=== PATIENT | male | born 1965 | race Caucasian/White ===

== ENCOUNTER 2021-01-04 05:37 | Observation (INO) | payer OTHER, SELFPAY ==
--- NOTE | ~2021-01-04 | XR_ITS ---
EXAMINATION: XR abdomen/kub 1V EXAM DATE: 01/05/2021 05:20 INDICATION: Small bowel obstruction. TECHNIQUE: Frontal projection(s) of the abdomen for interpretation. Comparison is made to prior exami nation from 01/04/2021. FINDINGS: Nasogastric tube present, tip is in stomach, but side port just above the gastroesophageal junction, could be safely advanced 5-10 cm. Several loops of severely dilated small bowel loops proje cting over lower pelvis, several loops of moderately dilated small bowel projecting over upper abdome n, small bowel obstruction. There is no organomegaly. IMPRESSION: 1. Feeding tube tip in stomach, side-port above the gastroesophageal junction. Could be safely advan damian 5-10 cm. 2. Small bowel obstruction. Reviewed, dictated and finalized at location A. IMPRESSION: 1. Feeding tube tip in stomach, side-port above the gastroesophageal junction. Could be safely advanced 5-10 cm. 2. Small bowel obstruction.
--- NOTE | ~2021-01-04 | XR_ITS ---
EXAMINATION: XR abdomen NG/feed tube insert DATE: 01/04/2021 11:28 INDICATION: Nasogastric tube placement. TECHNIQUE: An upright view of the abdomen was obtained. COMPARISON: CT abdomen and pelvis 01/04/2021 FINDINGS: The lower abdomen is excluded. There are multiple dilated loops of small bowel. The nasogas tric tube tip is in the stomach with proximal side port at the gastroesophageal junction. IMPRESSION: 1. Nasogastric tube tip in the stomach with proximal side port at the gastroesophageal junction. Adva ncement 5 cm is recommended. 2. Small bowel obstruction. Reviewed, dictated and finalized at location A. IMPRESSION: 1. Nasogastric tube tip in the stomach with proximal side port at the gastroeso phageal junction. Advancement 5 cm is recommended. 2. Small bowel obstruction.
--- NOTE | ~2021-01-04 | CT_ITS ---
EXAMINATION: CT abdomen pelvis w con EXAM DATE: 01/04/2021 06:58 INDICATION: Lower abdominal pain . TECHNIQUE: Spiral CT of the abdomen and pelvis was performed following intravenous injection of 100 m L Omnipaque 350. Axial, coronal and sagittal images of the abdomen and pelvis were reviewed. The do se-length product (DLP) for this examination was 1246.65 mGy-cm. The exposure was tailored according to patient size (auto mA exposure control), and iterative reconstruction (ASIR) was used as addition al dose reduction technique. Comparison is made to prior examination from 09/26/2018. FINDINGS: Small amount of perihepatic ascites. The liver, spleen, adrenal glands and pancreas are un remarkable. Gallbladder is unremarkable. No biliary obstruction. Portal and splenic veins are rodriguez nt. Kidneys enhance symmetrically. There is no hydronephrosis. The prostate is unremarkable. The bladder is unremarkable. There is no retroperitoneal or pelvic lymphadenopathy. There is mild sca ttered arteriosclerotic disease. Patient has subtotal colectomy. Again there is region of tenting of small bowel in the pelvis, with a transition point indicated on axial image 156. Most likely adhesion related small bowel obstruction. There is only small amount of sigmoid colonic stool. Similar appearance on prior study. No free in traperitoneal gas. The heart is normal in size. There are no pericardial or pleural effusions. Th e lung bases are unremarkable. There are no osteoblastic or osteolytic lesions identified. Patient cheryl de los santos has ankylosing spondylitis. IMPRESSION: 1. Recurrent small bowel obstruction, probably adhesion related. 2. Subtotal colectomy. 3. Small perihepatic ascites. 4. Probable ankylosing spondylitis Reviewed, dictated and finalized at location A.
[2021-01-04 05:42] VITALS: BP 147/93; PULSE 75; RESP 20; TEMP 36.9; O2SAT 94
[2021-01-04] MEDS: SODIUM CHLORIDE 0.9% IV 1,000 ML 999 ML IV CONT (06:13)
[2021-01-04] MEDS: ONDANSETRON INJ 4 MG/2 ML VIAL IV PUSH ×2 (06:13→11:03)
[2021-01-04] MEDS: HYDROmorphone HCL INJ (*CRX) 1 MG/ML SYR IV PUSH (06:13)
[2021-01-04 06:25] LABS: Basophils Absolute Auto 0.1 K/mm3 (0.0-0.1); Basophils Percent Auto 0.4 % (0.2-1.2); Eosinophils Percent Auto 0.3 % (0-4.4); Hematocrit 45.2 % (42.0-52.0); Hemoglobin 15.8 g/dL (14.0-18.0); Immature Granulocyte Absolute 0.09 K/mm3 (0.00-0.031); Immature Granulocyte Percent A 0.7 % (0-0.5); Lymphocytes Absolute Auto 1.23 K/mm3 (0.9-3.2); Lymphocytes Percent Auto 9.7 % (18.3-44.2); Mean Corpuscular Hemoglobin 30.2 pg (26-34); Mean Corpuscular Volume 86.3 fl (80-100); Monocytes Absolute Auto 0.8 K/mm3 (0.1-0.6); Monocytes Percent Auto 6.2 % (2.6-8.5); Neutrophils Absolute Auto 10.5 K/mm3 (1.3-6.7); Neutrophils Percent Auto 82.7 % (45.5-73.1); Platelet Count Result 232 k/mm3 (150-375); Red Blood Count 5.24 M/mm3 (4.6-6.20); Red Cell Distribution Width 12.7 % (11.5-14.5); White Blood Count 12.7 K/mm3 (4.5-10.0)
[2021-01-04 06:34] LABS: Lactic Acid Reflex 1.5 mmol/L (0.7-2.1)
[2021-01-04 06:36] LABS: Alanine Aminotransferase 23 U/L (4-50); Albumin Level 4.4 g/dL (3.5-5.1); Alkaline Phosphatase 79 U/L (38-126); Anion Gap 12 mmol/L (8-16); Aspartate Amino Transferase 35 U/L (17-59); Bilirubin,Total 0.7 mg/dL (0.2-1.3); Blood Urea Nitrogen 21 mg/dL (9-20); Calcium 9.3 mg/dL (8.4-10.2); Carbon Dioxide 23 mmol/L (22-30); Chloride 107 mmol/L (98-107); Estimated CRCL calculation 71 ml/min; Estimated Glomerular Filt Rate > 60; Glucose 119 mg/dL (75-110); Lipase 72 U/L (23-300); Potassium 4.2 mmol/L (3.4-5.0); Sodium 142 mmol/L (137-145)
--- NOTE | 2021-01-04 06:39 | ED.ABDPAIN ---
HPI - Abdominal Pain General Chief Complaint: Abdominal Pain <Inez Underwood MD - Last Filed: 01/04/21 07:10> Stated Complaint: sbo <Inez Underwood MD - Last Filed: 01/04/21 07:10> Time Seen by Provider: 01/04/21 05:53 <Inez Underwood MD - Last Filed: 01/04/21 07:10> Source: patient, RN notes reviewed and old records reviewed <Inez Underwood MD - Last Filed: 01/04/21 07:10> Mode of arrival: ambulatory <Inez Underwood MD - Last Filed: 01/04/21 07:10> Limitations: no limitations <Inez Underwood MD - Last Filed: 01/04/21 07:10> History of Present Illness HPI narrative: This is a 55 year old male with history of chrohn's disease, s/p total proctocolectomy with a J pouch who presents for evaluation of lower abdominal pain. He states he developed pain around 11 pm last night, and his pain has gradually worsened. He states he had a bowel movement at 10pm . He also reports he passed a small one just prior to arrival . He feels like he has an obstruction around his Jpouch. HE has nausea but no vomiting. He denies fever or chills. He states his surgery was in . He follows with [facility], Dr. Elsa Rodriguez <Inez Underwood MD - Last Filed: 01/04/21 07:10> Related Data Allergies/Adverse Reactions: Allergies Allergy/AdvReac Type Severity Reaction Status Date / Time No Known Allergies Allergy Unverified 02/05/16 07:07 <Inez Underwood MD - Last Filed: 01/04/21 07:10> Review of Systems Review of Systems: All systems reviewed & are unremarkable except as noted in HPI and below <Inez Underwood MD - Last Filed: 01/04/21 07:10> [facility] Past Medical History Medical History: Medical History (Updated 01/04/21 @ 10:58 by Sebastien Campo MD) Ankylosing spondylitis Crohn's disease of colon Psoriatic arthritis <Inez Underwood MD - Last Filed: 01/04/21 07:10> Surgical History Surgical History: Surgical History (Updated 01/04/21 @ 06:46 by Inez Underwood MD) S/P proctocolectomy <Inez Underwood MD - Last Filed: 01/04/21 07:10> Social History Social History: Social History Smoking status: Never smoker Alcohol intake: current <Inez Underwood MD - Last Filed: 01/04/21 07:10> Exam Const: General: alert <Inez Underwood MD - Last Filed: 01/04/21 07:10> Orientation/consciousness: patient oriented x3 <Inez Underwood MD - Last Filed: 01/04/21 07:10> HENMT: Head: normocephalic and atraumatic <Inez Underwood MD - Last Filed: 01/04/21 07:10> Face and sinus: face symmetric <Inez Underwood MD - Last Filed: 01/04/21 07:10> GI: Inspection: distended <Inez Underwood MD - Last Filed: 01/04/21 07:10> GI Palp: Yes Tenderness to palpation present (GI) and No Guarding due to palpation present (GI) <Inez Underwood MD - Last Filed: 01/04/21 07:10> Auscultation: Hypoactive bowel sounds present <Inez Underwood MD - Last Filed: 01/04/21 07:10> Other: declined rectal exam <Inez Underwood MD - Last Filed: 01/04/21 07:10> Skin: Other: forehead is diaphoretic <Inez Underwood MD - Last Filed: 01/04/21 07:10> Neuro: General: patient oriented x3 and moves all extremities <Inez Underwood MD - Last Filed: 01/04/21 07:10> Psych: Affect: normal affect <Inez Underwood MD - Last Filed: 01/04/21 07:10> Course Reevaluation(s) Reevaluation #1: PAtient is awaiting CT scan results. Care turned over to DR. Campo who will follow scans and determine disposition. <Inez Underwood MD - Last Filed: 01/04/21 07:10> Date: 01/04/21 <Inez Underwood MD - Last Filed: 01/04/21 07:10> Time: 07:09 <Inez Underwood MD - Last Filed: 01/04/21 07:10> Reevaluation #2: After CT scan admission or transfer was offered to the patient. He declined both and he also declined an NG tube because he felt his obstruction was soon going to pass and just wanted
[2021-01-04] MEDS: MORPHINE SULFATE (*CRX) 4 MG/ML INJ IV PUSH ×3 (08:03→14:57)
[2021-01-04 08:07] VITALS: BP 119/73; PULSE 78; RESP 19; O2SAT 98
[2021-01-04 08:51] LABS: Add Urine Microscopic? NO; Appearance Urine Clear (Clear); Bilirubin Urine Negative (Negative); Blood Urine Negative (Negative); Color Urine Yellow (Yellow); Glucose Urine UA Negative (Negative); Ketones Urine Negative (Negative); Leukocyte Esterase Ur Negative LEU/UL (Negative); Mucus Urine Rare /lpf; Nitrate Urine Negative (Negative); Protein Urine Negative (Negative); Urobilinogen Urine Negative mg/dL (<2.0); WBC Urine 0-3 /hpf
[2021-01-04 12:25] VITALS: BP 111/65; PULSE 88; RESP 15; O2SAT 95
--- NOTE | 2021-01-04 12:32 | PC.NURSE ---
gave pt 2mg of IV Morphine per Dr. Prakash.
--- NOTE | 2021-01-04 13:02 | PM.IMHP ---
H&P: HPI History of Present Illness Date/Time: 01/04/21 13:02 Chief Complaint: bowel obstruction Narrative: patient is a 55-year-old man who has a history of ulcerative colitis. In 1992 he underwent total abdominal proctocolectomy with J pouch in [facility]. Since that time, he has had issues with recurrent small-bowel obstructions as well as pouchitis. He also has a history of psoriatic arthritis. He has been on azathioprine and Stelara although I am not sure he is continuing to take these medications. He came to the emergency room early this morning with complaints of abdominal pain and lack of bowel movement. He normally has anywhere from 4-7 bowel movements per day. He is able to sense when he is having a bowel obstruction. He had some vomiting in the emergency room but none when he was at home. He had pouchoscopy at [facility] on December 12, [address] Elsa Rodriguez. The operative report from this endoscopy suggested he was on Otezla although he is apparently not taking that at present. The pouch os copies suggested that he has swelling and stenosis of the Afrin limb to the pouch. This was dilated at the procedure with 8 2 cm colonic balloon. Patient had a CT scan in the emergency department. This suggested a high-grade obstruction very similar to the location of his obstruction when he was here and admitted in 2019. The site of obstruction did not appear to be near the inlet to the pouch but rather more associated with adhesions. Tenting of the bowel was noted on the CT scan suggesting of this as well as a transition point. Patient is currently having abdominal pain requesting narcotic analgesics. A nasogastric tube has been placed. Review of his admission in September of 2018 showed that the obstruction resolved overnight. He is admitted now for continued care of small bowel obstruction. He does not take narcotics on a chronic basis. His reports he is off nearly all his medications except Protonix. Review of Systems Review of Systems: All systems reviewed & are unremarkable except as noted in HPI and below Constitutional: Constitutional: Reports as per HPI, Denies body ache(s), Denies chills, Denies fever(s), Denies headache(s), Denies night sweats and Reports poor appetite ENT: Denies headache(s) Cardiovascular: Cardiovascular: Denies chest pain and Denies dyspnea Respiratory: Respiratory: Denies cough and Denies dyspnea Gastrointestinal: Gastrointestinal: Reports as per HPI, Reports abdominal pain, Reports change in bowel habits, Reports constipation, Reports nausea and Reports vomiting Neurologic: Denies confusion and Denies headache(s) Psychiatric: Psychiatric: Denies confusion PMFSH Past Medical History Medical History (Updated 01/04/21 @ 13:26 by Julio Prakash MD) Ankylosing spondylitis Ileal pouchitis Psoriatic arthritis Surgical History Surgical History (Updated 01/04/21 @ 13:25 by Julio Prakash MD) S/P proctocolectomy with J pouch 1992 Social History Social History Smoking status: Never smoker Alcohol intake: current Meds Home Medications and Allergies Home Medications Medication Instructions Recorded Confirmed Type allopurinol 01/04/21 History azathioprine 01/04/21 History cefdinir mg 01/04/21 History pantoprazole PO 01/04/21 History ustekinumab [Stelara] SUBCUT 01/04/21 History Allergies Allergy/AdvReac Type Severity Reaction Status Date / Time No Known Allergies Allergy Unverified 02/05/16 07:07 Vital Signs Vital Signs - 24 hr 01/04/21 05:42 01/04/21 08:07 01/04/21 12:25 Temperature 36.9 C Pulse Rate 75 78 88 Respiratory Rate 20 19 15 Blood Pressure 147/93 H 119/73 111/65 Pulse Oximetry 94 98 95 Exam Const: General: healthy appearing, no acute distress, well developed, alert, awake and uncomfortable Nutritional Appearance: well nourished
--- NOTE | 2021-01-04 13:13 | PC.NURSE ---
This patient, Kevin Cervantes, was admitted to [facility] Surg Room 310-01. Report received from BHUMI Damon. Patient/family oriented to hospital policies and general routines including ID bracelet, bed and alarms, visiting hours, pain management, procedures, bathroom and other care routines, personal items, smoking policy, room service/diet, and visiting hours. Information on how to activate the Rapid Response Team has been discussed. Patient/Family are encouraged to report perceived risks to care and to ask questions if they do not understand what they are told or what they should do.
[2021-01-04] MEDS: KCL 40 MEQ/D5/0.9% SOD CHL 1,000 ML 125 ML IV CONT ×2 (13:58→23:27)
[2021-01-04 14:00] VITALS: BP 115/75; PULSE 77; RESP 18; TEMP 36; O2SAT 97
[2021-01-04] MEDS: IBUPROFEN IV 800 MG/200 ML 800 MG/200 ML BAG 400 MG IVPB (14:06)
[2021-01-04] MEDS: ENOXAPARIN 40 MG/0.4 ML SYRINGE SUB-Q (17:27)
[2021-01-04 21:33] VITALS: BP 124/64; PULSE 75; RESP 18; TEMP 37.1; O2SAT 97
[2021-01-04] MEDS: FAMOTIDINE 20 MG/2 ML VIAL IV PUSH (22:03)
[2021-01-05 06:00] VITALS: BP 125/71; PULSE 80; RESP 18; TEMP 36.3; O2SAT 97
[2021-01-05 06:05] LABS: Hematocrit 43.7 % (42.0-52.0); Hemoglobin 14.4 g/dL (14.0-18.0); Mean Corpuscular Hemoglobin 30.1 pg (26-34); Mean Corpuscular Volume 91.4 fl (80-100); Mean Platelet Volume 9.5 fl (7.4-10.4); Platelet Count Result 202 k/mm3 (150-375); Red Blood Count 4.78 M/mm3 (4.6-6.20); Red Cell Distribution Width 13.5 % (11.5-14.5); White Blood Count 6.8 K/mm3 (4.5-10.0)
[2021-01-05 06:12] LABS: Anion Gap 7 mmol/L (8-16); Blood Urea Nitrogen 23 mg/dL (9-20); Calcium 8.2 mg/dL (8.4-10.2); Carbon Dioxide 29 mmol/L (22-30); Chloride 105 mmol/L (98-107); Estimated CRCL calculation 66 ml/min; Estimated Glomerular Filt Rate 57; Glucose 109 mg/dL (75-110); Potassium 3.9 mmol/L (3.4-5.0); Sodium 141 mmol/L (137-145)
--- NOTE | 2021-01-05 09:24 | PM.IMCN ---
Assessment and Plan Assessment and plan (1) Small bowel obstruction: Onset Date: ~12/2020 Code(s): K56.609 - Unspecified intestinal obstruction, unspecified as to partial versus complete obstruction Status: Acute (2) Ileal pouchitis: Onset Date: ~11/2020 Code(s): K91.850 - Pouchitis Status: Chronic (3) Psoriatic arthritis: Onset Date: Unknown Code(s): L40.50 - Arthropathic psoriasis, unspecified Status: Chronic Additional Plan Patient appears to be doing well with his UC treatment. Still evidence of ongoing inflammation with pouchitis but mild improvement from prior. Continue Stelara which will also cover for the psoriasis and psoriatic arthritis. Skin is clear now. Patient tolerating current diet. Advance as tolerated. Instructed patient that in the future if these symptoms recur, he should remain NPO until stool and flatus pass then proceed with clear liquid diet. Lovenox for DVT prophylaxis Thank you for allowing me to see your patient. HPI Data of Consult Consult date: 01/05/21 Requesting Physician: Julio Prakash MD Primary Care Provider: Ba Hendrix MD Consult Narrative Reason for consult: Medical management Narrative: Kevin Cervantes is a 55 year old male with ulcerative colitis here for abdominal pain and found to have small bowel obstruction. Patient developed abdominal pain the evening prior to admission. He had distention without flatus or BMs. He has had SBO in the past treated conservatively. He walked excessively and had improvement with +BMs. He then had a Diet Coke and tortilla chips. 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 No n/v. No fever or chills. No further hx of stool incontinence. Estee was found to have SBO on admisison and NGT placed. Patient has had improvement with multiple stools today. NG tube is out. No melena or hematochezia. 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 Weight has been stable recently. Currently on Stelara monotherapy. He stopped Imuran 8 months ago with plans to change to another oral agent but there was an insurance issue. While awaiting for authorization, he seemed to do quite well with the Stelara so patient wished to remain on single agent. He had his last endoscopy on 12/12/20 at [facility] that showed friable rectal cuff, aphtha in the ileoanal pouch and stricture in the afferent limb that was dilated. Review of Systems Review of Systems: All systems reviewed & are unremarkable except as noted in HPI and below PMFSH Past Medical History Medical History Ankylosing spondylitis Erosive gastroesophageal reflux disease HLA-B27 positive arthropathy Ileal pouchitis (~11/2020) Psoriasis Psoriatic arthritis (Unknown) Ulcerative colitis diagnosed in 1982 Surgical History Surgical History H/O peritonsillar abscess drainage H/O total colectomy Total in 1992 for UC with reversal ileostomy with ileoanal anastamosis S/P left knee arthroscopy meniscus surgery in 1997 S/P proctocolectomy with J pouch 1992 Family History Family History (Updated 01/05/21 @ 14:20 by Dedrick Uribe MD) Mother Dementia Father Alcoholism Cancer Social History Social History (Updated 01/05/21 @ 14:22 by Dedrick Uribe MD) Social History: Smoked 1/2ppd x 3-4 years and quit at age 17yo. Drinks 6 alcoholic drinks per year. No drug use. Lives at home with his and 3 children. Full code. Nominates his to be the individual who would make medical decision for him if he is unable Smoking status: Never smoker Alcohol intake: current Spiritual care concerns: No Meds Home Medications and Allergies Home Medications Medication Instructions Recorded Confirmed Type pantoprazole 40 mg PO DAILY 01/04/21 01/04/21 History ustekinumab [St
--- NOTE | 2021-01-05 09:28 | PM.PNGS ---
Progress Note: A&P Assessment and Plan (1) Small bowel obstruction: Onset Date: ~12/2020 Code(s): K56.609 - Unspecified intestinal obstruction, unspecified as to partial versus complete obstruction Status: Acute Assessment and Plan: Clinically the patient is improving. Abdominal x-ray today still shows a few dilated loops of small bowel however patient is having bowel movements Will plan to check with his nurse at around lunch and if he is improving consider discharge that time period (2) Ileal pouchitis: Onset Date: ~11/2020 Code(s): K91.850 - Pouchitis Status: Chronic Assessment and Plan: Patient has had on and off pouch itis. He is working with a GI physician at [facility] to control this and will contact them if he has further problems once discharged. (3) Psoriatic arthritis: Onset Date: Unknown Code(s): L40.50 - Arthropathic psoriasis, unspecified Status: Chronic Assessment and Plan: This is the main reason for the consultation to the hospitalist. Dr. Prakash put this consult in before he left [facility]. Patient does not apparently take any routine p.o. medicines for this but takes the Stelara once every 6 weeks as an injection and this helps keep this under control. 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 Additional Plan Increase diet to full liquids Check at noon and see if patient can be discharged. Encourage patient to work with his GI physician and possibly get admitted to [place] the next time he has a bowel obstruction so that they can further check his pouch and the afferent loop. Subjective Subjective Date/Time Seen: 01/05/21 08:28 Patient is feeling much better. He began having loose stools through the night. Therefore, Dr. Manriquez checked on him early this morning and had his NG tube removed. Plain films of the abdomen were repeated this morning still showing some dilated loops of small bowel but the patient is continuing to have loose stools and states that he is having no pain adjust the occasional cramping. He still feels like he slightly bloated in the abdomen. He is however tolerating clear liquids. Review of Systems Constitutional: Constitutional: Reports no additional constitutional complaints ENT: Reports other (Mucous Membranes moist.) Cardiovascular: Cardiovascular: Denies dyspnea Respiratory: Respiratory: Denies pain on inspiration and Denies dyspnea Musculoskeletal: Musculoskeletal: Reports other (No calf swelling or edema) Integumentary/Breasts: Skin/Breast: Reports system reviewed and no additional complaints, except as docu Exam Const: General: cooperative, no acute distress, alert and awake Orientation/consciousness: patient oriented x3 HENMT: Mouth: Yes moist mucous membranes Neck: Neck: normal visual inspection Chest: Chest palpation & inspection: normal inspection of the chest Resp: Effort & Inspection: normal respiratory effort Auscultation: clear to auscultation bilaterally Cardio: Jugular venous distension: no JVD Rate: regular rate Rhythm: regular rhythm GI: Inspection: scar (Well-healed midline from previous surgery) GI Palp: No Hernia present and No Rebound tenderness present Percussion: Yes other (Mild abdominal distention to palpation with no masses) Auscultation: normoactive bowel sounds Rectal Exam: deferred Neuro: General: patient oriented x3 and moves all extremities Speech: normal speech Extrem: General: normal exam except as noted Psych: Mental Status: mental status grossly normal Speech and movement: Normal speech and movement present Affect: normal affect Thought content: Yes Normal thought content present Objective Data Vital Signs Vital Signs: Vital Signs - 24 hr 01/04/21 12:25 01/04/21 14:00 01/04/21 21:33 Temperature 36.0 C L 37.1 C Pulse Rate 88 77 75 Respiratory Rate 15 18 18 Blood Pressure 111/65 115/75 124/64 Pulse Oxim
[2021-01-05] MEDS: PANTOPRAZOLE 40 MG TABLET PO (10:37)
== END 2021-01-05 14:38 | disposition home or self-care (01) ==
LOC: ANHED 10:58 → ANH3MEDSUR 15:18
PROVIDERS: General Practice; Admitting Provider Surgery; Emergency Provider Emergency Medicine; PCP Family Medicine; Visit Provider Surgery
DX: K56.609 Unspecified intestinal obstruction, unspecified as to partial versus complete obstruction (principal); K51.90 Ulcerative colitis, unspecified, without complications; K91.850 Pouchitis; M45.9 Ankylosing spondylitis of unspecified sites in spine; L40.50 Arthropathic psoriasis, unspecified; K21.9 Gastro-esophageal reflux disease without esophagitis; R76.8 Other specified abnormal immunological findings in serum; Z15.89 Genetic susceptibility to other disease; Z90.49 Acquired absence of other specified parts of digestive tract
CPT/HCPCS: 36415; 74018; 74177; 80048; 80053; 81003; 83605; 83690; 85025; 85027; 96361; 96365; 96366; 96367; 96372; 96375; 96376; 99285; A9270; G0378; J1170; J1650; J1741; J2270; J2405; J3480; J7030; Q9967

== ENCOUNTER → 2021-10-13 14:37 | Outpatient (CLI) | payer OTHER, SELFPAY ==
--- NOTE | ~2021-10-13 | XR_ITS ---
XR lumbar spine 2-3V DATE: 10/13/2021 15:45 INDICATION: Low back pain TECHNIQUE: AP, lateral, coned lateral lumbosacral views COMPARISON: 04/17/2016 CT abdomen pelvis September 14, 2016 lumbar spine FINDINGS: Very prominent bridging osteophyte at L3-4 and and to a lesser extent L4-5. No fracture or bone destruction or spondylolisthesis. The lumbar pedicles are intact. There is degenerative change at the apophyseal joints. No spondylolisthesis. There is ankylosis at the sacroiliac joints as well as syndesmophytes of lower thoracic and lumbar sp ine, suggesting ankylosing spondylitis or other spondyloarthropathy. IMPRESSION: Bilateral sacroiliac ankylosis and lower thoracic and lumbar syndesmophytes, suggesting a nkylosing spondylitis or other spondyloarthropathy Huge bridging osteophyte at L3-4, anterior spurring at L4-5 Reviewed, dictated and finalized at location A. IMPRESSION: Bilateral sacroiliac ankylosis and lower thoracic and lumbar syndes mophytes, suggesting ankylosing spondylitis or other spondyloarthropathy Huge bridging osteophyte at L3-4, anterior spurring at L4-5
== END ==
DX: M54.50 Low back pain, unspecified (principal)
CPT/HCPCS: 72100

== ENCOUNTER → 2022-01-16 13:01 | Outpatient (CLI) | payer OTHER, SELFPAY ==
--- NOTE | ~2022-01-16 | CT_ITS ---
EXAMINATION: CT abdomen pelvis w con INDICATION: Abdominal pain, history of Crohn's disease and total colectomy TECHNIQUE: Computed tomographic images of the abdomen and pelvis were obtained after the administrati on of 100 cc of Omnipaque 300 intravenous contrast. The dose-length product (DLP) was 1075.45 mGy-cm. Automated exposure control and iterative reconstruction technique were employed. COMPARISON: 01/04/2021 FINDINGS: Minimal dependent atelectasis is present in the lung bases. The heart size is normal. There is chronic mild distention of the gallbladder. The liver, spleen, pancreas, and adrenal glands are n ormal. The kidneys are unremarkable. No pathologically enlarged abdominal or pelvic lymph nodes are i dentified. There are changes of total colectomy. There are a few chronically dilated loops of small b owel without fixed obstruction seen. There is no free intraperitoneal gas. IMPRESSION: 1. Changes of total colectomy and some areas of chronically dilated small bowel without acute finding s identified. Reviewed, dictated and finalized at location A. IMPRESSION: 1. Changes of total colectomy and some areas of chronically dilated small bowel without acute findings identified.
== END ==
PROVIDERS: PCP Family Medicine
DX: R10.9 Unspecified abdominal pain (principal); M54.9 Dorsalgia, unspecified; Z90.49 Acquired absence of other specified parts of digestive tract
CPT/HCPCS: 74177; Q9967

== ENCOUNTER 2022-04-17 05:22 | Emergency (ER) | payer OTHER, SELFPAY ==
[2022-04-17] VITALS (13 sets, daily range): BP systolic 102–134; BP diastolic 58–87; PULSE 51–68; RESP 11–19; TEMP 36.4; O2SAT 97–99
--- NOTE | 2022-04-17 05:32 | ECG_ITS ---
Measurements Intervals [place] Rate: 59 P: 28 [place]: 168 QRS: 56 QRSD: 93 T: 50 QT: 426 QTc: 425 Interpretive Statements SINUS BRADYCARDIA BORDERLINE ECG NO PREVIOUS ECG AVAILABLE FOR COMPARISON Electronically Signed On 04-17-2022 16:46:14 CDT by Abiel Nguyễn D.O.
--- NOTE | 2022-04-17 05:40 | ED.GENADULT ---
HPI - General Adult General Chief complaint: Dizziness Stated complaint: VERTIGO Time Seen by Provider: 04/17/22 05:38 History of Present Illness HPI narrative: This is a 56-year-old male history of vertigo presenting to ED chief complaint of vertigo. Patient says it started approximately quarter 5 this morning. He woke up feeling well. When he got out of bed and moved his head he started to have a intense sensation of vertigo. The vertigo completely resolves in between head motions. He then called EMS to bring him to the hospital. Patient has had a recent URI. He denies double vision, dysarthria, dysphagia, diplopia, dystaxia He has no numbness tingling weakness to any extremity. Related Data Home Medications Medication Instructions Recorded Confirmed pantoprazole 40 mg tablet,delayed 40 mg PO DAILY 01/04/21 01/04/21 release ustekinumab 90 mg/mL subcutaneous 90 mg subcut [id number] 01/04/21 01/04/21 syringe (Stelara) Allergies Allergy/AdvReac Type Severity Reaction Status Date / Time No Known Allergies Allergy Verified 04/17/22 05:53 Review of Systems Review of Systems: CONSTITUTIONAL: Denies night sweats. EYES: No eye pain ENT: Denies rhinorrhea CARDIOVASCULAR: Denies palpitations RESPIRATORY: Denies hemoptysis GASTROINTESTINAL: Denies hematemesis GENITOURINARY: Denies hematuria. SKIN: Denies rash MUSCULOSKELETAL: Denies myalgia. NEUROLOGIC: Denies weakness. PSYCHIATRIC: Denies delusions PMFSH Past Medical History Medical History Ankylosing spondylitis Erosive gastroesophageal reflux disease HLA-B27 positive arthropathy Ileal pouchitis (~11/2020) Psoriasis Psoriatic arthritis (Unknown) Ulcerative colitis diagnosed in 1982 Surgical History Surgical History H/O peritonsillar abscess drainage H/O total colectomy Total in 1992 for UC with reversal ileostomy with ileoanal anastamosis S/P left knee arthroscopy meniscus surgery in 1997 S/P proctocolectomy with J pouch 1992 Family History Family History Mother Dementia Father Alcoholism Cancer Social History Social History Social History: Smoked 1/2ppd x 3-4 years and quit at age 17yo. Drinks 6 alcoholic drinks per year. No drug use. Lives at home with his and 3 children. Full code. Nominates his to be the individual who would make medical decision for him if he is unable Smoking status: Never smoker Alcohol intake: current Spiritual care concerns: No Exam Narrative: APPEARANCE: No apparent distress. Head atraumatic. tympanic membranes are normal EYES: PERRLA/EOMI, No nystagmus at rest. NOSE: Normal no drainage NECK: Supple, Trachea midline RESPIRATORY: CTAB, No increased work of breathing. CARDIOVASCULAR: S1S2 appreciated ABDOMINAL: Soft, nontender, nondistended, MUSCULOSKELETAl: No obvious deformities NEURO: Alert. Cranial nerves 2-12 grossly intact. Sensation light touch, motor function cerebellar function intact for 4/4extremities. Gait exam was normal. SKIN:: Warm, dry. Normal color PSYCHIATRIC: Normal affect Course Vital Signs Vital signs: Vital Signs Temperature 36.4 C 04/17/22 05:25 Pulse Rate 57 L 04/17/22 05:25 Respiratory Rate 17 04/17/22 05:25 Blood Pressure 130/77 04/17/22 05:25 Pulse Oximetry 97 04/17/22 05:25 Temperature 36.4 C 04/17/22 05:25 Pulse Rate 57 L 04/17/22 08:01 Respiratory Rate 15 04/17/22 08:01 Blood Pressure 126/87 04/17/22 08:01 Pulse Oximetry 97 04/17/22 08:01 Oxygen Delivery Room Air 04/17/22 05:30 Medical Decision Making [facility] Narrative Medical decision making narrative: this is a 56-year-old male presenting to ED with vertigo. His constellation of symptoms are not consistent with a central
[2022-04-17] MEDS: SODIUM CHLORIDE 0.9% IV 2,000 ML 999 ML IV CONT (05:48)
[2022-04-17] MEDS: MECLIZINE HCL 25 MG TABLET PO (05:49)
[2022-04-17 06:00] LABS: Glucose Point of Care 100 mg/dl (65-105)
[2022-04-17] MEDS: SCOPOLAMINE 1.5 MG PATCH TRANSDERM (06:01)
[2022-04-17] MEDS: diazePAM INJ (*CRX) 10 MG/2 ML SYRINGE 5 MG IV PUSH (06:28)
[2022-04-17] MEDS: guaiFENesin/DEXTROMETHORPHAN 10 ML UDC PO (06:40)
[2022-04-17] MEDS: FLUTICASONE PROPIONATE 0.05% NA SPR 16 GM BTL (*BKC) 2 SPRAY NASAL (06:40)
--- NOTE | 2022-04-17 07:12 | PC.NURSE ---
Transferred pt care to BHUMI Ding
[2022-04-17] MEDS: METOCLOPRAMIDE HCL INJ 10 MG/2 ML VIAL IV PUSH (07:31)
--- NOTE | 2022-04-17 08:01 | PC.NURSE ---
Pt able to sit on side of the bed and sit next to bed. pt states that although he still feels dizzy, he his dizziness is much improved from earlier.
== END 2022-04-17 08:57 | disposition home or self-care (01) ==
PROVIDERS: Emergency Provider Emergency Medicine; PCP Family Medicine
DX: R42 Dizziness and giddiness (principal); E86.0 Dehydration; R09.81 Nasal congestion; R00.1 Bradycardia, unspecified; K21.9 Gastro-esophageal reflux disease without esophagitis
CPT/HCPCS: 82948; 93005; 96361; 96374; 96375; 99284; A9270; J2765; J3360; J7030

== ENCOUNTER → 2023-03-05 11:02 | Outpatient (CLI) | payer OTHER, SELFPAY ==
--- NOTE | ~2023-03-05 | MR_ITS ---
EXAMINATION: MR knee LT wo con DATE: 03/05/2023 11:29 INDICATION: Left knee pain TECHNIQUE: Magnetic resonance imaging (MRI) of the left knee was performed without intravenous contra st. Sequences included coronal PD-weighted FSE, coronal PD-weighted FS FSE, sagittal T2-weighted FSE , sagittal PD-weighted FS FSE and axial PD weighted fat saturated FSE. COMPARISON: None. FINDINGS: Medial compartment: Posterior horn of the medial meniscus is small and there is some scarring at the medial aspect of Hof fa's fat pad which suggests prior arthroscopy and likely partial meniscectomy. Complex tear of the re maining body and posterior horn of the medial meniscus. Shallow chondral ulceration at the anterior w eightbearing medial femoral condyle. Partial-thickness chondral fissuring at the lateral side of the medial tibial plateau and deeper but without degenerative subchondral changes at the central aspect o f the weightbearing medial femoral condyle. Lateral compartment: Additional complex tear at the posterior horn of the lateral meniscus. Deep chondral ulceration with mild underlying edema-like signal change at the medial side of the lateral tibial plateau along the s houlder the intercondylar eminence. Deep chondral fissuring without degenerative subchondral changes at the central aspect of the weightbearing lateral femoral condyle with more shallow chondral fissuri ng along the anterior weightbearing lateral femoral condyle. Patellofemoral compartment: Deep chondral fissuring centered at the cephalad aspect of the trochlear groove. Shallow chondral fis suring at the juxtaposed inferior aspect of the patellar apical ridge and lateral facet. Ligaments and tendons: Complete tear of the anterior cruciate ligament. Posterior cruciate ligament is normal. The medial co llateral ligament and fibular collateral ligament complex are normal. The extensor mechanism is sin l. The visualized medial and lateral hamstring tendons as well as the iliotibial band are normal. Fluid: Physiologic amount of fluid in the joint space. No loose osteochondral bodies identified. Osseous/other: Bone alignment is normal. No fracture or pathologic marrow replacing process. IMPRESSION: 1. Complete tear of the anterior cruciate ligament. 2. Complex tear of the body and posterior horn of the medial meniscus, the latter which appears small suggesting prior partial meniscectomy. Correlate with surgical history. 3. Complex tear at the posterior wall of the lateral meniscus. 4. Mild tricompartmental osteoarthritis with small region of high-grade chondromalacia at the lateral tibial plateau and moderate grade chondromalacia along portions of the remaining articular surfaces at all 3 compartments. Reviewed, dictated and finalized at location L. IMPRESSION: 1. Complete tear of the anterior cruciate ligament. 2. Complex tear of the body and posterior horn of the medial meniscus, the latt er which appears small suggesting prior partial meniscectomy. Correlate with de luna rgical history. 3. Complex tear at the posterior wall of the lateral meniscus. 4. Mild tricompartmental osteoarthritis with small region of high-grade chondro malacia at the lateral tibial plateau and moderate grade chondromalacia along p ortions of the remaining articular surfaces at all 3 compartments.
== END ==
PROVIDERS: PCP Family Medicine; Visit Provider Physician Assistant Surgical
DX: M17.12 Unilateral primary osteoarthritis, left knee (principal); S83.232A Complex tear of medial meniscus, current injury, left knee, initial encounter; S83.512A Sprain of anterior cruciate ligament of left knee, initial encounter; X58.XXXA Exposure to other specified factors, initial encounter
CPT/HCPCS: 73721

== ENCOUNTER 2023-03-14 05:42 | Emergency (ER) | payer OTHER, SELFPAY ==
[2023-03-14] VITALS (7 sets, daily range): BP systolic 106–150; BP diastolic 67–98; PULSE 65–78; RESP 12–20; TEMP 36.2; O2SAT 98–100
--- NOTE | 2023-03-14 05:57 | PC.NURSE ---
Pt reports feeling confused . When asked to elaborate on this pt states I Just feel like I cant make decisions
--- NOTE | 2023-03-14 05:58 | ECG_ITS ---
Measurements Intervals [place] Rate: 66 P: 27 VA: 139 QRS: 40 QRSD: 84 T: 34 QT: 412 QTc: 434 Interpretive Statements SINUS RHYTHM NORMAL ELECTROCARDIOGRAM COMPARED TO ECG 04/17/2022 05:32:49 SINUS RHYTHM NOW PRESENT Electronically Signed On 03-14-2023 13:16:05 CDT by Jeramy Lopez M.D.
--- NOTE | 2023-03-14 05:59 | ED.GENADULT ---
HPI - General Adult General Chief complaint: Unspecified Stated complaint: dehydrated Time Seen by Provider: 03/14/23 05:51 History of Present Illness HPI narrative: Patient is a 57-year-old gentleman who presents the emergency department with chief complaint of dehydration. 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 Patient denies chest pain denies shortness of breath denies abdominal pain. Related Data Home Medications Medication Instructions Recorded Confirmed pantoprazole 40 mg tablet,delayed 40 mg PO DAILY 01/04/21 01/04/21 release ustekinumab 90 mg/mL subcutaneous 90 mg subcut [id number] 01/04/21 01/04/21 syringe (Stelara) Allergies Allergy/AdvReac Type Severity Reaction Status Date / Time No Known Allergies Allergy Verified 03/14/23 05:42 Review of Systems Review of Systems: A 10 system review of systems was completed on the patient and is negative except for what is stated in the HPI. Nursing and ancillary documentation was reviewed. [facility] Past Medical History Medical History Ankylosing spondylitis Erosive gastroesophageal reflux disease HLA-B27 positive arthropathy Ileal pouchitis (~11/2020) Psoriasis Psoriatic arthritis (Unknown) Ulcerative colitis diagnosed in 1982 Surgical History Surgical History H/O peritonsillar abscess drainage H/O total colectomy Total in 1992 for UC with reversal ileostomy with ileoanal anastamosis S/P left knee arthroscopy meniscus surgery in 1997 S/P proctocolectomy with J pouch 1992 Family History Family History Mother Dementia Father Alcoholism Cancer Social History Social History Social History: Smoked 1/2ppd x 3-4 years and quit at age 17yo. Drinks 6 alcoholic drinks per year. No drug use. Lives at home with his and 3 children. Full code. Nominates his to be the individual who would make medical decision for him if he is unable Smoking status: Never smoker Alcohol intake: current Spiritual care concerns: No Exam Narrative: GENERAL: Well-appearing, well-nourished, and in no acute distress. HEAD: Normocephalic, atraumatic. EYES: PERRLA and EOMI. ENT: Nares clear, no rhinorrhea or epistaxis. Mucous membranes moist. NECK: Supple. CHEST: Clear to auscultation. No respiratory distress. HEART: Regular rate and rhythm. No murmur heard. Normal peripheral pulses. ABDOMEN: Soft, nontender, nondistended, normal active bowel sounds. EXTREMITIES: Normal range of motion. No edema. SKIN: Warm, dry, no rash. NEURO: No focal deficits. Alert and oriented x3. PSYCH: Normal mood and affect. Course Vital Signs Vital signs: Vital Signs Temperature 36.2 C L 03/14/23 05:46 Pulse Rate 78 03/14/23 05:46 Respiratory Rate 14 03/14/23 05:46 Blood Pressure 145/94 H 03/14/23 05:46 Pulse Oximetry 100 03/14/23 05:46 Temperature 36.2 C L 03/14/23 05:46 Pulse Rate 65 03/14/23 06:37 Respiratory Rate 15 03/14/23 06:36 Blood Pressure 143/93 H 03/14/23 06:36 Pulse Oximetry 100 03/14/23 06:36 Medical Decision Making [facility] Narrative Medical decision making narrative: Differential diagnosis includes dehydration, electrolyt
[2023-03-14] MEDS: ONDANSETRON INJ 4 MG/2 ML VIAL IV PUSH (06:07)
[2023-03-14] MEDS: SODIUM CHLORIDE 0.9% IV 1,000 ML 999 ML IV CONT ×2 (06:07)
[2023-03-14 06:45] LABS: Basophils Absolute Auto 0.1 K/mm3 (0.0-0.1); Basophils Percent Auto 0.9 % (0.2-1.2); Eosinophils Absolute Auto 0.1 K/mm3 (0-0.3); Eosinophils Percent Auto 2.2 % (0-4.4); Hematocrit 38.3 % (42.0-52.0); Hemoglobin 12.8 g/dL (14.0-18.0); Immature Granulocyte Absolute 0.07 K/mm3 (0.00-0.031); Immature Granulocyte Percent A 1.2 % (0-0.5); Lymphocytes Absolute Auto 1.49 K/mm3 (0.9-3.2); Lymphocytes Percent Auto 25.6 % (18.3-44.2); Mean Corpuscular HGB Conc 33.4 g/dl (32-36); Mean Corpuscular Hemoglobin 28.2 pg (26-34); Mean Corpuscular Volume 84.4 fl (80-100); Mean Platelet Volume 9.2 fl (7.4-10.4); Monocytes Absolute Auto 0.6 K/mm3 (0.1-0.6); Neutrophils Absolute Auto 3.5 K/mm3 (1.3-6.7); Neutrophils Percent Auto 59.1 % (45.5-73.1); Platelet Count Result 195 k/mm3 (150-375); Red Blood Count 4.54 M/mm3 (4.6-6.20); Red Cell Distribution Width 14.2 % (11.5-14.5); White Blood Count 5.8 K/mm3 (4.5-10.0)
[2023-03-14 07:01] LABS: Alanine Aminotransferase 22 U/L (6-50); Albumin Level 3.8 g/dL (3.5-5.1); Alkaline Phosphatase 67 U/L (38-126); Anion Gap 9 mmol/L (8-16); Aspartate Amino Transferase 25 U/L (17-59); Bilirubin,Total 0.8 mg/dL (0.2-1.3); Blood Urea Nitrogen 21 mg/dL (9-20); Calcium 8.1 mg/dL (8.4-10.2); Carbon Dioxide 21 mmol/L (22-30); Chloride 108 mmol/L (98-107); Estimated CRCL calculation 70 ml/min; Estimated Glomerular Filt Rate > 60; Glucose 93 mg/dL (65-110); Lactic Acid Reflex 0.7 mmol/L (0.7-2.0); Magnesium 2.1 mg/dL (1.6-2.3); Potassium 3.4 mmol/L (3.4-5.0); Sodium 138 mmol/L (137-145)
--- NOTE | 2023-03-14 07:11 | PC.NURSE ---
Assumed care from BHUMI Brooks at this time. Pt resting comfortably in bed with fluids going.
[2023-03-14 07:54] LABS: Appearance Urine Clear (Clear); Bilirubin Urine Negative (Negative); Blood Urine Negative (Negative); Color Urine Yellow (Yellow); Glucose Urine UA Negative (Negative); Ketones Urine Negative (Negative); Leukocyte Esterase Ur Negative LEU/UL (Negative); Nitrate Urine Negative (Negative); Protein Urine Negative (Negative); Specific Grav Ur 1.013 (1.001-1.035); Urobilinogen Urine 0.2 mg/dL (<2.0); pH Urine 5.5 (5.0-9.0)
[2023-03-14 08:00] LABS: Add Urine Microscopic? NO
== END 2023-03-14 08:06 | disposition home or self-care (01) ==
PROVIDERS: Emergency Provider Emergency Medicine; PCP Family Medicine
DX: E86.0 Dehydration (principal)
CPT/HCPCS: 36415; 80053; 81003; 83605; 83735; 85025; 93005; 96361; 96374; 99284; J2405; J7030

== ENCOUNTER 2023-08-23 06:31 | Observation (INO) | payer OTHER, SELFPAY ==
[2023-08-23] VITALS (7 sets, daily range): BP systolic 108–146; BP diastolic 59–93; PULSE 71–102; RESP 15–20; TEMP 36.5–36.8; O2SAT 98–100
--- NOTE | ~2023-08-23 | CT_ITS ---
CT of the Abdomen and Pelvis: Indication: Small bowel obstruction Technique: 2.5 mm axial scans were obtained through the abdomen and pelvis following intravenous adm inistration of 100 cc of Omnipaque 350. Dose reduction technique was used on this scan by utilizing a utomated exposure control and iterative reconstruction technique. The dose-length product (DLP) was 6 83.02 mGy-cm. COMPARISON: 01/16/2022 Findings: Scans through the lung bases are unremarkable. The liver, spleen, pancreas, adrenals and kidneys are within normal limits. Small gallstones are pres ent. No evidence of aortic aneurysm. No lymphadenopathy. Evidence of at least prior partial colectomy. There are multiple dilated small bowel loops with possi ble transition point near the anastomosis, suggestive of small bowel obstruction, though the stomach and proximal small bowel is nondistended. Probable mild wall thickening of the presumed pouch, consis tent with pouchitis. Images through the pelvis were performed. Urinary bladder unremarkable. No pelvic mass seen. No ascit es. Impression: Dilated small bowel loops suggest at least early or partial small bowel obstruction, although the sto mach and proximal small bowel loops are nondistended. Findings suggestive of mild pouchitis with prior colectomy. Correlate with surgical history. Cholelithiasis. Reviewed, dictated and finalized at location . [employer] Impression: Dilated small bowel loops suggest at least early or partial small bowel obstruc tion, although the stomach and proximal small bowel loops are nondistended. Findings suggestive of mild pouchitis with prior colectomy. Correlate with surg ical history. Cholelithiasis.
[2023-08-23 06:46] LABS: Basophils Absolute Auto 0.1 K/mm3 (0.0-0.1); Basophils Percent Auto 0.4 % (0.2-1.2); Eosinophils Absolute Auto 0.1 K/mm3 (0-0.3); Eosinophils Percent Auto 0.4 % (0-4.4); Hematocrit 42.1 % (42.0-52.0); Hemoglobin 14.4 g/dL (14.0-18.0); Immature Granulocyte Absolute 0.07 K/mm3 (0.00-0.031); Immature Granulocyte Percent A 0.6 % (0-0.5); Lymphocytes Absolute Auto 2.29 K/mm3 (0.9-3.2); Lymphocytes Percent Auto 20.3 % (18.3-44.2); Mean Corpuscular HGB Conc 34.2 g/dl (32-36); Mean Corpuscular Volume 90.7 fl (80-100); Mean Platelet Volume 9.4 fl (7.4-10.4); Monocytes Absolute Auto 0.8 K/mm3 (0.1-0.6); Monocytes Percent Auto 6.9 % (2.6-8.5); Neutrophils Absolute Auto 8.1 K/mm3 (1.3-6.7); Neutrophils Percent Auto 71.4 % (45.5-73.1); Platelet Count Result 244 k/mm3 (150-375); Red Blood Count 4.64 M/mm3 (4.6-6.20); Red Cell Distribution Width 15.3 % (11.5-14.5); White Blood Count 11.3 K/mm3 (4.5-10.0)
[2023-08-23 07:04] LABS: Alanine Aminotransferase 21 U/L (6-50); Albumin Level 4.4 g/dL (3.5-5.1); Alkaline Phosphatase 73 U/L (38-126); Anion Gap 9 mmol/L (8-16); Aspartate Amino Transferase 30 U/L (17-59); Bilirubin,Total 0.8 mg/dL (0.2-1.3); Blood Urea Nitrogen 24 mg/dL (9-20); Calcium 9.2 mg/dL (8.4-10.2); Carbon Dioxide 25 mmol/L (22-30); Chloride 105 mmol/L (98-107); Estimated CRCL calculation 77 ml/min; Estimated Glomerular Filt Rate 57; Glucose 111 mg/dL (65-110); Lipase 144 U/L (23-300); Sodium 139 mmol/L (137-145)
--- NOTE | 2023-08-23 08:00 | ED.GENADULT ---
HPI - General Adult General Chief complaint: Abdominal Pain Stated complaint: abd pain Time Seen by Provider: 08/23/23 07:02 History of Present Illness HPI narrative: They 57-year-old male who presents ER with abdominal pain and distension. Reports began at 10:00 p.m. last night. Has history of recurrent bowel obstructions related to previous colectomy and J-pouch. Reports he gets narrowing at his J-pouch. He has no vomiting or belching. He has not had a bowel movement or been able to pass gas since yesterday. No aggravating or alleviating factors that he has noted. He reports normal oral intake prior to developing the discomfort. Related Data Home Medications Medication Instructions Recorded Confirmed pantoprazole 40 mg tablet,delayed 40 mg PO DAILY 01/04/21 08/23/23 release ustekinumab 90 mg/mL subcutaneous 90 mg subcut [id number] 01/04/21 08/23/23 syringe (Stelara) upadacitinib 15 mg tablet,extended 15 mg PO DAILY 08/23/23 08/23/23 release 24 hr (Rinvoq) Allergies Allergy/AdvReac Type Severity Reaction Status Date / Time No Known Allergies Allergy Verified 03/14/23 05:42 Review of Systems Review of Systems: All systems reviewed & are unremarkable except as noted in HPI and below Constitutional: Constitutional: Reports no additional constitutional complaints ENT: Reports system reviewed and no additional complaints, except as documented Cardiovascular: Cardiovascular: Reports no additional cardiovascular complaints Respiratory: Respiratory: Reports no additional respiratory complaints Gastrointestinal: Gastrointestinal: Reports abdominal pain, Reports bloating, Denies constipation, Denies diarrhea, Denies nausea and Denies vomiting [facility] Past Medical History Medical History Ankylosing spondylitis Erosive gastroesophageal reflux disease HLA-B27 positive arthropathy Ileal pouchitis (~11/2020) Psoriasis Psoriatic arthritis (Unknown) Ulcerative colitis diagnosed in 1982 Surgical History Surgical History H/O peritonsillar abscess drainage H/O total colectomy Total in 1992 for UC with reversal ileostomy with ileoanal anastamosis S/P left knee arthroscopy meniscus surgery in 1997 S/P proctocolectomy with J pouch 1992 Family History Family History Mother Dementia Asthma Father Alcoholism Cancer Social History Social History Social History: Smoked 1/2ppd x 3-4 years and quit at age 17yo. Drinks 6 alcoholic drinks per year. No drug use. Lives at home with his and 3 children. Full code. Nominates his to be the individual who would make medical decision for him if he is unable Smoking status: Never smoker Smokeless tobacco user: chewing tobacco Alcohol intake: former Substance use: never Do You Feel Safe in your Home?: Yes Lack of Transportation: No Lack of Food: Never True Current Housing: I Have Housing Concerned About Future Housing: No Difficulty Paying Gas/Electric Bills: No Difficulty Paying for Meds: No Currently Unemployed: No Education: Master's Degree or Higher Difficulty w/ Childcare or Family Care: No Spiritual care concerns: No Exam Narrative: GENERAL: Uncomfortable-appearing, well-nourished, and in no acute distress. HEAD: Normocephalic, atraumatic. EYES: PERRL and EOMI. ENT: Mucous membranes moist. NECK: Supple. CHEST: Clear to auscultation. No respiratory distress. HEART: Regular rate and rhythm. Normal peripheral pulses. ABDOMEN: Firm with generalized tenderness and mild distension. EXTREMITIES: Normal range of motion. No edema. SKIN: Warm, dry, no rash. NEURO: Alert and oriented x3. PSYCH: Normal mood and affect. Course Course Emergency Course: General surgery and GI consulted. Will
[2023-08-23] MEDS: MORPHINE SULFATE (*CRX) 4 MG/ML INJ IV PUSH ×2 (08:31→10:47)
[2023-08-23] MEDS: methylPREDNISolone SOD SUCC 40 MG VIAL IV PUSH ×2 (09:15→15:51)
[2023-08-23 09:54] LABS: Appearance Urine Clear (Clear); Bilirubin Urine Negative (Negative); Blood Urine Negative (Negative); Color Urine Yellow (Yellow); Glucose Urine UA Negative (Negative); Ketones Urine Negative (Negative); Leukocyte Esterase Ur Negative LEU/UL (Negative); Nitrate Urine Negative (Negative); Protein Urine Negative (Negative); Urobilinogen Urine 0.2 mg/dL (<2.0)
[2023-08-23 10:00] LABS: Specific Grav Ur 1.075 (1.001-1.035)
[2023-08-23 10:01] LABS: Add Urine Microscopic? NO
[2023-08-23] MEDS: SODIUM CHLORIDE 0.9% IV 1,000 ML 125 ML IV CONT ×2 (10:47→19:50)
[2023-08-23] MEDS: ONDANSETRON INJ 4 MG/2 ML VIAL IV PUSH (10:47)
--- NOTE | 2023-08-23 11:20 | PC.NURSE ---
This patient, Kevin Cervantes, was admitted to 2 Medical Room 260-. Patient/family oriented to hospital policies and general routines including ID bracelet, bed and alarms, visiting hours, pain management, procedures, bathroom and other care routines, personal items, smoking policy, room service/diet, and visiting hours. Information on how to activate the Rapid Response Team has been discussed. Patient/Family are encouraged to report perceived risks to care and to ask questions if they do not understand what they are told or what they should do.
--- NOTE | 2023-08-23 13:46 | PM.CNGS ---
Assessment and Plan Assessment and plan (1) Small bowel obstruction: Onset Date: ~12/2020 Code(s): K56.609 - Unspecified intestinal obstruction, unspecified as to partial versus complete obstruction Status: Acute Assessment and Plan: Conservative management was serial exams, labs, imaging, exam completely benign at this point, would hold off on NG decompression unless becomes symptomatic, will likely need revision of J pouch given recurrent issues, obstruction, will refer to Colorectal surgery at [place] upon discharge (2) Ileal pouchitis: Onset Date: ~11/2020 Code(s): K91.850 - Pouchitis Status: Chronic Assessment and Plan: await GI consultation and will likely need acute dose steroids History of Present Illness Consult details Consult date: 08/23/23 Reason for consult: abdominal pain Requesting physician: Sebastien Campo MD Narrative: The patient is a 57-year-old male with history of ulcerative colitis status post total colectomy with creation of J-pouch presenting with abdominal pain, obstructive symptoms. The patient reports he had his original surgery done in 1992 at the [facility]. The patient reports since that time he has had issues with pouchitis, obstruction. The patient has had endoscopy with dilation in the past. The patient has also been on maintenance steroid therapy. The patient reports this episode is very consistent with his previous episodes. Review of Systems Review of Systems: All systems reviewed & are unremarkable except as noted in HPI and below PMFSH Past Medical History Medical History Ankylosing spondylitis Erosive gastroesophageal reflux disease HLA-B27 positive arthropathy Ileal pouchitis (~11/2020) Psoriasis Psoriatic arthritis (Unknown) Ulcerative colitis diagnosed in 1982 Surgical History Surgical History H/O peritonsillar abscess drainage H/O total colectomy Total in 1992 for UC with reversal ileostomy with ileoanal anastamosis S/P left knee arthroscopy meniscus surgery in 1997 S/P proctocolectomy with J pouch 1992 Family History Family History Mother Dementia Asthma Father Alcoholism Cancer Social History Social History Social History: Smoked 1/2ppd x 3-4 years and quit at age 17yo. Drinks 6 alcoholic drinks per year. No drug use. Lives at home with his and 3 children. Full code. Nominates his to be the individual who would make medical decision for him if he is unable Smoking status: Never smoker Smokeless tobacco user: chewing tobacco Alcohol intake: former Substance use: never Do You Feel Safe in your Home?: Yes Lack of Transportation: No Lack of Food: Never True Current Housing: I Have Housing Concerned About Future Housing: No Difficulty Paying Gas/Electric Bills: No Difficulty Paying for Meds: No Currently Unemployed: No Education: Master's Degree or Higher Difficulty w/ Childcare or Family Care: No Spiritual care concerns: No Meds Home Medications and Allergies Home Medications Medication Instructions Recorded Confirmed Type pantoprazole 40 mg tablet,delayed 40 mg PO DAILY 01/04/21 08/23/23 History release ustekinumab 90 mg/mL subcutaneous 90 mg subcut [id number] 01/04/21 08/23/23 History syringe (Stelara) upadacitinib 15 mg tablet,extended 15 mg PO DAILY 08/23/23 08/23/23 History release 24 hr (Rinvoq) Allergies Allergy/AdvReac Type Severity Reaction Status Date / Time No Known Allergies Allergy Verified 03/14/23 05:42 Vital Signs Vital Signs - 24 hr 08/23/23 06:45 08/23/23 07:00 08/23/23 07:57 Temperature 36.6 C 36.6 C 36.5 C Pulse Rate 102 H 82 82 Respiratory Rate 15 16 16 Blood Pressure 146/90
--- NOTE | 2023-08-23 15:19 | PM.IMHP ---
H&P: HPI History of Present Illness Date/Time: 08/23/23 15:19 Chief Complaint: Abdominal pain Narrative: They 57-year-old male who presents ER with abdominal pain and distension.? Reports began at 10:00 p.m. last night.? Has history of recurrent bowel obstructions related to previous colectomy and J-pouch.? Reports he gets narrowing at his J-pouch.? He has no vomiting or belching.? He has not had a bowel movement or been able to pass gas since yesterday.? No aggravating or alleviating factors that he has noted.? He reports normal oral intake prior to developing the discomfort. Review of Systems Review of Systems: - CONSTITUTIONAL: Denies weight loss, fever and chills. - HEENT: Denies changes in vision and hearing - RESPIRATORY: Denies SOB and cough. - CV: Denies palpitations and CP. - GI: See HPI - : Denies dysuria and urinary frequency. - MSK: Denies myalgia and joint pain. - SKIN: Denies rash and pruritus. - NEUROLOGICAL: Denies headache and syncope. - PSYCHIATRIC: Denies recent changes in mood. Denies anxiety and depression. [facility] Past Medical History Medical History Ankylosing spondylitis Erosive gastroesophageal reflux disease HLA-B27 positive arthropathy Ileal pouchitis (~11/2020) Psoriasis Psoriatic arthritis (Unknown) Ulcerative colitis diagnosed in 1982 Surgical History Surgical History H/O peritonsillar abscess drainage H/O total colectomy Total in 1992 for UC with reversal ileostomy with ileoanal anastamosis S/P left knee arthroscopy meniscus surgery in 1997 S/P proctocolectomy with J pouch 1992 Family History Family History Mother Dementia Asthma Father Alcoholism Cancer Social History Social History Social History: Smoked 1/2ppd x 3-4 years and quit at age 17yo. Drinks 6 alcoholic drinks per year. No drug use. Lives at home with his and 3 children. Full code. Nominates his to be the individual who would make medical decision for him if he is unable Smoking status: Never smoker Smokeless tobacco user: chewing tobacco Alcohol intake: former Substance use: never Do You Feel Safe in your Home?: Yes Lack of Transportation: No Lack of Food: Never True Current Housing: I Have Housing Concerned About Future Housing: No Difficulty Paying Gas/Electric Bills: No Difficulty Paying for Meds: No Currently Unemployed: No Education: Master's Degree or Higher Difficulty w/ Childcare or Family Care: No Spiritual care concerns: No Meds Home Medications and Allergies Home Medications Medication Instructions Recorded Confirmed Type pantoprazole 40 mg tablet,delayed 40 mg PO DAILY 01/04/21 08/23/23 History release ustekinumab 90 mg/mL subcutaneous 90 mg subcut [id number] 01/04/21 08/23/23 History syringe (Stelara) upadacitinib 15 mg tablet,extended 15 mg PO DAILY 08/23/23 08/23/23 History release 24 hr (Rinvoq) Allergies Allergy/AdvReac Type Severity Reaction Status Date / Time No Known Allergies Allergy Verified 03/14/23 05:42 Vital Signs Vital Signs - 24 hr 08/23/23 06:45 08/23/23 07:00 08/23/23 07:57 Temperature 97.9 F 97.8 F 97.7 F Pulse Rate 102 H 82 82 Respiratory Rate 15 16 16 Blood Pressure 146/90 H 139/86 134/93 H Pulse Oximetry 100 100 98 Oxygen Delivery 08/23/23 09:00 08/23/23 10:00 08/23/23 11:21 Temperature 98.0 F 97.9 F 97.7 F Pulse Rate 73 71 74 Respiratory Rate 16 16 16 Blood Pressure 132/70 111/59 L 134/75 Pulse Oximetry 100 98 98 Oxygen Delivery 08/23/23 11:48 Temperature Pulse Rate Respiratory Rate Blood Pressure Pulse Oximetry Oxygen Delivery Room Air Exam Narrative: GENERAL: Uncomfortable-appearing, well-nourished, and in no ac
--- NOTE | 2023-08-23 15:26 | WPDGICN ---
Assessment and Plan Assessment and plan (1) Small bowel obstruction: Onset Date: ~12/2020 Code(s): K56.609 - Unspecified intestinal obstruction, unspecified as to partial versus complete obstruction Status: Acute Assessment and Plan: it seems that already feeling better and passing gas no BM yet (at baseline 6-7) probably liquid diet soon when he is less asymptomatic surgery on board no GI coverage this weekend (2) Ileal pouchitis: Onset Date: ~11/2020 Code(s): K91.850 - Pouchitis Status: Chronic Assessment and Plan: chronic with some stricture that required dilation several times he is on stelara and last Novemeber his GI doctor added rinvoq- less pain and overall better from pouchitis (3) Crohn disease: Code(s): K50.90 - Crohn's disease, unspecified, without complications Status: Acute Assessment and Plan: he is established with GI at [facility] (4) Ankylosing spondylitis: Code(s): M45.9 - Ankylosing spondylitis of unspecified sites in spine Status: Acute GI Consult Note Consult date/time: 08/23/23 15:26 Reason for consult: pouchitis, SBO, Crohn's HPI: Kevin Cervantes is a 57 year old male with ileocolonic Crohn's s/p total proctocolectomy with ileoanal anastomosis in 1992 who is seeing GI at [facility] and diagnosed with pouchitis and also stricture in the ileocanal pouch that has been dilated multiple times, sometimes even twice a year, last scope (pouchoscopy) was ~ May, still noted to have inflammation and started on rinvoq that helped with pouchitis and discomfort (he is still on stelara now on combination therapy). He also has AP, psoriasis and he has been in the past treated with humira, remicade, xeljanz, MTX, imuran. Last hospitalization with SOB 2 years ago, treated medically but also required NGT. This time he came here after severe abdominal pain and no passing gas, no vomiting. CT scan reviewed, noted Dilated small bowel loops suggest at least early or partial small bowel obstruction, although the stomach and proximal small bowel loops are nondistended. Findings suggestive of mild pouchitis with prior colectomy. He now is passing gas with less abdominal discomfort, no nausea and he thinks that SBO is resolving. Review of Systems Constitutional: Constitutional: Denies chills Eyes: Eyes: Denies blurry vision ENT: Reports Normal hearing present Cardiovascular: Cardiovascular: Denies chest pain Respiratory: Respiratory: Denies chest congestion Gastrointestinal: Gastrointestinal: Reports abdominal pain Genitourinary: Genitourinary: Denies dysuria Musculoskeletal: Musculoskeletal: Denies myalgias Integumentary/Breasts: Skin/Breast: Denies rash Neurologic: Denies confusion Psychiatric: Psychiatric: Denies behavioral changes COUNTS INCLUDE 234 BEDS AT THE [facility] Past Medical History Medical History Ankylosing spondylitis Erosive gastroesophageal reflux disease HLA-B27 positive arthropathy Ileal pouchitis (~11/2020) Psoriasis Psoriatic arthritis (Unknown) Ulcerative colitis diagnosed in 1982 Surgical History Surgical History H/O peritonsillar abscess drainage H/O total colectomy Total in 1992 for UC with reversal ileostomy with ileoanal anastamosis S/P left knee arthroscopy meniscus surgery in 1997 S/P proctocolectomy with J pouch 1992 Family History Family History Mother Dementia Asthma Father Alcoholism Cancer Social History Social History Social History: Smoked 1/2ppd x 3-4 years and quit at age 17yo. Drinks 6 alcoholic drinks per year. No drug use. Lives at home with his and 3 children. Full code. Nominates his to be the individual who would make medical decision for him if he is unable Smoking status: N
[2023-08-24] MEDS: methylPREDNISolone SOD SUCC 40 MG VIAL IV PUSH ×3 (00:23→16:53)
[2023-08-24 03:25] VITALS: BP 117/62; PULSE 71; RESP 20; TEMP 36.4; O2SAT 96
[2023-08-24] MEDS: SODIUM CHLORIDE 0.9% IV 1,000 ML 125 ML IV CONT ×2 (03:45→12:57)
[2023-08-24 08:14] LABS: Alanine Aminotransferase 18 U/L (6-50); Albumin Level 3.3 g/dL (3.5-5.1); Alkaline Phosphatase 53 U/L (38-126); Anion Gap 5 mmol/L (8-16); Aspartate Amino Transferase 25 U/L (17-59); Bilirubin,Total 0.6 mg/dL (0.2-1.3); Blood Urea Nitrogen 20 mg/dL (9-20); Calcium 8.1 mg/dL (8.4-10.2); Carbon Dioxide 22 mmol/L (22-30); Chloride 110 mmol/L (98-107); Estimated CRCL calculation 98 ml/min; Estimated Glomerular Filt Rate > 60; Glucose 137 mg/dL (65-110); Magnesium 2.1 mg/dL (1.6-2.3); Potassium 4.3 mmol/L (3.4-5.0); Sodium 137 mmol/L (137-145)
[2023-08-24 08:37] LABS: Basophils Percent Auto 0.1 % (0.2-1.2); Hematocrit 33.6 % (42.0-52.0); Immature Granulocyte Absolute 0.04 K/mm3 (0.00-0.031); Immature Granulocyte Percent A 0.4 % (0-0.5); Lymphocytes Percent Auto 7.4 % (18.3-44.2); Mean Corpuscular HGB Conc 32.7 g/dl (32-36); Mean Corpuscular Hemoglobin 30.7 pg (26-34); Mean Corpuscular Volume 93.9 fl (80-100); Monocytes Absolute Auto 0.4 K/mm3 (0.1-0.6); Monocytes Percent Auto 3.9 % (2.6-8.5); Neutrophils Absolute Auto 8.4 K/mm3 (1.3-6.7); Neutrophils Percent Auto 88.2 % (45.5-73.1); Platelet Count Result 188 k/mm3 (150-375); Red Blood Count 3.58 M/mm3 (4.6-6.20); Red Cell Distribution Width 15.6 % (11.5-14.5); White Blood Count 9.5 K/mm3 (4.5-10.0)
[2023-08-24] MEDS: ENOXAPARIN 40 MG/0.4 ML SYRINGE SUB-Q (09:33)
--- NOTE | 2023-08-24 10:48 | PM.PNGS ---
Progress Note: A&P Assessment and Plan (1) Small bowel obstruction: Onset Date: ~12/2020 Code(s): K56.609 - Unspecified intestinal obstruction, unspecified as to partial versus complete obstruction Status: Acute Assessment and Plan: exam benign, +bowel fxn, will ADAT, home if alfred diet (2) Ileal pouchitis: Onset Date: ~11/2020 Code(s): K91.850 - Pouchitis Status: Chronic Assessment and Plan: cont steroids per GI, will need referral to CRS for further evaluation Subjective Subjective Date/Time Seen: 08/24/23 10:48 Interval history: feels much better, +bowel fxn, no further nausea, wants to eat Review of Systems Review of Systems: All systems reviewed & are unremarkable except as noted in HPI and below Exam Const: General: cooperative, comfortable and no acute distress Resp: Auscultation: clear to auscultation bilaterally Cardio: Rate: regular rate Rhythm: regular rhythm GI: Inspection: normal to inspection and non-distended GI Palp: No abdominal tenderness, Yes Soft to palpation, No Tenderness to palpation present (GI) and No Guarding due to palpation present (GI) Objective Data Vital Signs Vital Signs: Vital Signs - 24 hr 08/23/23 11:21 08/23/23 11:48 08/23/23 19:29 Temperature 36.5 C 36.8 C Pulse Rate 74 74 Respiratory Rate 16 20 Blood Pressure 134/75 108/64 Pulse Oximetry 98 98 Oxygen Delivery Room Air 08/23/23 20:40 08/24/23 03:25 Temperature 36.4 C L Pulse Rate 71 Respiratory Rate 20 Blood Pressure 117/62 Pulse Oximetry 96 Oxygen Delivery Room Air Intake/Output Intake/Output: Intake & Output 08/21/23 08/22/23 08/23/23 08/24/23 23:59 23:59 23:59 23:59 Intake Total 1000 1000 Balance 1000 1000 Meds/Results Medications: Active Medications Generic Name Dose Route Start Last Admin Trade Name Freq PRN Reason Stop Dose Admin Enoxaparin Sodium 40 mg 08/24/23 09:00 08/24/23 09:33 Enoxaparin 40 Mg/0.4 Ml Syringe SUB-Q 40 mg DAILY GAIL Administration Sodium Chloride 1,000 mls @ 125 mls/hr 08/23/23 10:20 08/24/23 03:45 Normal Saline Iv IV CONT 125 mls/hr .Q8H GAIL Administration Methylprednisolone Sodium Succinate 40 mg 08/23/23 16:00 08/24/23 09:33 Methylprednisolone Sod Succ 40 Mg Vial IV PUSH 40 mg Q8H GAIL Administration Morphine Sulfate 4 mg 08/23/23 10:16 08/23/23 10:47 Morphine Sulfate (*Crx) 4 Mg/Ml Inj IV PUSH 4 mg Q2H PRN Administration Pain Rated 7-10 Ondansetron HCl 4 mg 08/23/23 10:16 08/23/23 10:47 Ondansetron Inj 4 Mg/2 Ml Vial IV PUSH 4 mg Q4H PRN Administration Nausea Radiology Results: ITS Impressions Abdomen/Pelvis CT 08/23/23 07:43 Impression: Dilated small bowel loops suggest at least early or partial small bowel obstruction, although the stomach and proximal small bowel loops are nondistended. Findings suggestive of mild pouchitis with prior colectomy. Correlate with surgical history. Cholelithiasis. Labs Labs: Laboratory Results - last 24 hr 08/24/23 07:59 WBC 9.5 RBC 3.58 L Hgb 11.0 L D Hct 33.6 L MCV 93.9 MCH 30.7 MCHC 32.7 RDW 15.6 H Plt Count 188 MPV 10.0 Immature Gran % (Auto) 0.4 Neut % (Auto) 88.2 H Lymph % (Auto) 7.4 L [place] % (Auto) 3.9 Eos % (Auto) 0.0 Baso % (Auto) 0.1 L Lymph # (Auto) 0.70 L [place] # (Auto) 0.4 Eos # (Auto) 0.0 Baso # (Auto) 0.0 Abs Immat Gran (auto) 0.04 H Absolute Neuts (auto) 8.4 H Absolute Nucleated RBC 0.0 Nucleated RBC % 0.0 Sodium 137 Potassium 4.3 Chloride 110 H Carbon Dioxide 22 Anion Gap 5 L BUN 20 Creatinine 1.00 Estim Creat Clear Calc 98 Estimated GFR > 60 Glucose 137 H Calcium 8.1 L Magnesium 2.1 Total Bilirubin 0.6 AST 25 ALT 18 Alkaline Phosphatase 53 Total Protein 6.0 L Albumin 3.3 L
[2023-08-24 14:00] VITALS: BP 112/61; PULSE 78; RESP 18; TEMP 36.9; O2SAT 99
--- NOTE | 2023-08-24 15:27 | PM.DS ---
DS: Admitting Diagnosis Discharge Date 08/25/2023 Admitting Diagnosis Abdominal pain DS: Discharge Diagnosis Discharge Diagnosis (1) Crohn disease: Code(s): K50.90 - Crohn's disease, unspecified, without complications Status: Acute (2) Ileal pouchitis: Onset Date: ~11/2020 Code(s): K91.850 - Pouchitis Status: Chronic (3) Small bowel obstruction: Onset Date: ~12/2020 Code(s): K56.609 - Unspecified intestinal obstruction, unspecified as to partial versus complete obstruction Status: Acute (4) Ankylosing spondylitis: Code(s): M45.9 - Ankylosing spondylitis of unspecified sites in spine Status: Acute (5) Psoriatic arthritis: Onset Date: Unknown Code(s): L40.50 - Arthropathic psoriasis, unspecified Status: Chronic DS: Summary Hospital Course Hospital Course: This is a 57-year-old male presented with abdominal pain and distention Since last night. History of recurrent bowel obstruction. History of total colectomy in 1992 for ulcerative colitis with reversal ileostomy with ileoanal anastomosis SLE B27 positive arthropathy ulcer colitis diagnosed in 1982. ED evaluations mild leukocytosis 11.3. Rest of labs unremarkable. CT abdomen pelvis showed dilated small-bowel loop suggestive of earlier partial small bowel obstruction findings suggestive of mild pouchitis with prior colectomy. General surgery and GI has been consulted. Possible flare of ulcerative colitis and hence IV steroid has been recommended and started. A continue NPO and IV fluids as ordered. DVT prophylaxis Lovenox. He improved with treatment and started having bowel movement with resolution of abdominal discomfort and distention. Diet was started and he tolerated well. 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 He will also need to see a colorectal surgeon with regard to his recurrent pouchitis. This will be arranged as outpatient basis Time Spent with Patient Time attestation: Total time spent providing and/or coordinating discharge services:35 mins Exam Narrative: GENERAL: well-nourished, and in no acute distress. HEAD: Normocephalic, atraumatic. EYES: PERRL and EOMI. ENT: Mucous membranes moist. NECK: Supple. CHEST: Clear to auscultation.? No respiratory distress. HEART: Regular rate and rhythm.? Normal peripheral pulses. ABDOMEN: Firm nontender and mild distension. EXTREMITIES: Normal range of motion.? No edema. SKIN: Warm, dry, no rash. NEURO: Alert and oriented x3. PSYCH: Normal mood and affect. DS: Data Data Completed and Pending Labs on day of discharge: Labs from last 24 hours 08/24/23 07:59 WBC 9.5 RBC 3.58 L Hgb 11.0 L D Hct 33.6 L MCV 93.9 MCH 30.7 MCHC 32.7 RDW 15.6 H Plt Count 188 MPV 10.0 Immature Gran % (Auto) 0.4 Neut % (Auto) 88.2 H Lymph % (Auto) 7.4 L [place] % (Auto) 3.9 Eos % (Auto) 0.0 Baso % (Auto) 0.1 L Lymph # (Auto) 0.70 L [place] # (Auto) 0.4 Eos # (Auto) 0.0 Baso # (Auto) 0.0 Abs Immat Gran (auto) 0.04 H Absolute Neuts (auto) 8.4 H Absolute Nucleated RBC 0.0 Nucleated RBC % 0.0 Sodium 137 Potassium 4.3 Chloride 110 H Carbon Dioxide 22 Anion Gap 5 L BUN 20 Creatinine 1.00 Estim Creat Clear Calc 98 Estimated GFR > 60 Glucose 137 H Calcium 8.1 L Magnesium 2.1 Total Bilirubin 0.6 AST 25 ALT 18 Alkaline Phosphatase 53 Total Protein 6.0 L Albumin 3.3 L Imaging Radiologist's impression: ITS Impressions Abdomen/Pelvis CT 08/23/23 07:43 Impression: Dilated small bowel loops suggest at least early or partial small bowel obstruction, although the stomach and proximal small bowel loops are nondistended. Findings suggestive of mild pouchitis with prior colectomy. Correlate with surgical history. Cholelithiasis. Discharge Plan Discharge Attending physician on discharge: Erick Galvez
== END 2023-08-24 18:10 | disposition home or self-care (01) ==
LOC: ANHED 07:43 → ANH2MED 10:27
PROVIDERS: Emergency Medicine; Admitting Provider Internal Medicine; Emergency Provider Emergency Medicine; PCP Family Medicine; Visit Provider Internal Medicine
DX: K56.609 Unspecified intestinal obstruction, unspecified as to partial versus complete obstruction (principal); K91.850 Pouchitis; K50.90 Crohn's disease, unspecified, without complications; M45.9 Ankylosing spondylitis of unspecified sites in spine; L40.50 Arthropathic psoriasis, unspecified; K21.9 Gastro-esophageal reflux disease without esophagitis; L40.9 Psoriasis, unspecified; Z90.49 Acquired absence of other specified parts of digestive tract; Z79.620 Long term (current) use of immunosuppressive biologic; Z98.0 Intestinal bypass and anastomosis status; F17.220 Nicotine dependence, chewing tobacco, uncomplicated
CPT/HCPCS: 36415; 74177; 80053; 81003; 83690; 83735; 85025; 96361; 96372; 96374; 96375; 96376; 99285; G0378; J1650; J2270; J2405; J2920; J7030; Q9967

== ENCOUNTER 2024-03-15 22:25 | Emergency (ER) | payer OTHER, SELFPAY ==
[2024-03-15 22:26] VITALS: BP 188/102; PULSE 81; RESP 15; TEMP 36.7; O2SAT 100
[2024-03-15 22:37] VITALS: BP 158/95; PULSE 75; RESP 18; O2SAT 98
[2024-03-15 23:07] LABS: Basophils Percent Auto 0.6 % (0.2-1.2); Eosinophils Absolute Auto 0.1 K/mm3 (0-0.3); Eosinophils Percent Auto 1.9 % (0-4.4); Hemoglobin 12.6 g/dL (14.0-18.0); Immature Granulocyte Absolute 0.05 K/mm3 (0.00-0.031); Immature Granulocyte Percent A 0.8 % (0-0.5); Lymphocytes Absolute Auto 1.83 K/mm3 (0.9-3.2); Lymphocytes Percent Auto 28.5 % (18.3-44.2); Mean Corpuscular HGB Conc 34.1 g/dl (32-36); Mean Corpuscular Hemoglobin 29.2 pg (26-34); Mean Corpuscular Volume 85.6 fl (80-100); Mean Platelet Volume 9.1 fl (7.4-10.4); Monocytes Absolute Auto 0.8 K/mm3 (0.1-0.6); Monocytes Percent Auto 12.8 % (2.6-8.5); Neutrophils Absolute Auto 3.6 K/mm3 (1.3-6.7); Neutrophils Percent Auto 55.4 % (45.5-73.1); Platelet Count Result 217 k/mm3 (150-375); Red Blood Count 4.32 M/mm3 (4.6-6.20); Red Cell Distribution Width 16.5 % (11.5-14.5); White Blood Count 6.4 K/mm3 (4.5-10.0)
[2024-03-15 23:09] LABS: Add Urine Microscopic? NO; Appearance Urine Clear (Clear); Bilirubin Urine Negative (Negative); Blood Urine Negative (Negative); Color Urine Yellow (Yellow); Glucose Urine UA Negative (Negative); Ketones Urine Negative (Negative); Leukocyte Esterase Ur Negative LEU/UL (Negative); Nitrate Urine Negative (Negative); Protein Urine Negative (Negative); Specific Grav Ur 1.007 (1.001-1.035); Urobilinogen Urine 0.2 mg/dL (<2.0)
[2024-03-15 23:21] LABS: Alanine Aminotransferase 16 U/L (6-50); Alkaline Phosphatase 61 U/L (38-126); Anion Gap 11 mmol/L (4-12); Aspartate Amino Transferase 27 U/L (17-59); Bilirubin,Total 0.2 mg/dL (0.2-1.3); Blood Urea Nitrogen 20 mg/dL (9-20); Calcium 8.4 mg/dL (8.4-10.2); Carbon Dioxide 20 mmol/L (22-30); Chloride 107 mmol/L (98-107); Estimated CRCL calculation 71 ml/min; Estimated Glomerular Filt Rate > 60; Glucose 112 mg/dL (65-110); Lipase 105 U/L (23-300); Potassium 3.6 mmol/L (3.4-5.0); Sodium 138 mmol/L (137-145)
--- NOTE | 2024-03-15 23:44 | ED.GENADULT ---
HPI - General Adult General Chief complaint: Unspecified Stated complaint: SBO Time Seen by Provider: 03/15/24 23:24 History of Present Illness HPI narrative: This is a 58-year-old male presenting to ED with 3 hours of abdominal pain. Patient but is having small bowel obstruction. When he got to the ED he had a large bowel movement he is now asymptomatic. He is requesting discharge. Related Data Home Medications Medication Instructions Recorded Confirmed upadacitinib 15 mg tablet,extended 15 mg PO DAILY 08/23/23 11/19/23 release 24 hr (Rinvoq) pantoprazole 40 mg tablet,delayed 40 mg PO QAM 11/19/23 11/19/23 release (Protonix) Allergies Allergy/AdvReac Type Severity Reaction Status Date / Time No Known Allergies Allergy Verified 03/15/24 22:29 [facility] Past Medical History Medical History Ankylosing spondylitis Erosive gastroesophageal reflux disease HLA-B27 positive arthropathy Ileal pouchitis (~11/2020) Psoriasis Psoriatic arthritis (Unknown) Ulcerative colitis diagnosed in 1982 Surgical History Surgical History H/O peritonsillar abscess drainage H/O total colectomy Total in 1992 for UC with reversal ileostomy with ileoanal anastamosis S/P left knee arthroscopy meniscus surgery in 1997 S/P proctocolectomy with J pouch 1992 Family History Family History Mother Dementia Asthma Father Alcoholism Cancer Social History Social History Social History: Smoked 1/2ppd x 3-4 years and quit at age 17yo. Drinks 6 alcoholic drinks per year. No drug use. Lives at home with his and 3 children. Full code. Nominates his to be the individual who would make medical decision for him if he is unable Smoking status: Never smoker Smokeless tobacco user: chewing tobacco Alcohol intake: former Substance use: never Do You Feel Safe in your Home?: Yes Lack of Transportation: No Lack of Food: Never True Current Housing: I Have Housing Concerned About Future Housing: No Difficulty Paying Gas/Electric Bills: No Difficulty Paying for Meds: No Currently Unemployed: No Education: Master's Degree or Higher Difficulty w/ Childcare or Family Care: No Spiritual care concerns: No Exam Narrative: APPEARANCE: No apparent distress. Head: atraumatic. EYES: EOMI, NOSE: Atraumatic NECK: Trachea midline RESPIRATORY: No increased rate of breathing CARDIOVASCULAR: RRR, ABDOMINAL: Non-distended, soft nontender no guarding rebound MUSCULOSKELETAl: No obvious deformities NEURO: Alert. Moving 4/4 extremities SKIN:: Warm, dry. Normal color PSYCHIATRIC: Normal affect Course Vital Signs Vital signs: Vital Signs Temperature 98.0 F 03/15/24 22:26 Pulse Rate 81 03/15/24 22:26 Respiratory Rate 15 03/15/24 22:26 Blood Pressure 188/102 H 03/15/24 22:26 Pulse Oximetry 100 03/15/24 22:26 Temperature 98.0 F 03/15/24 22:26 Pulse Rate 75 03/15/24 22:37 Respiratory Rate 18 03/15/24 22:37 Blood Pressure 158/95 H 03/15/24 22:37 Pulse Oximetry 98 03/15/24 22:37 Medical Decision Making [facility] Narrative Medical decision making narrative: -Course: 58-year-old male with history of recurrent small-bowel obstructions due to Crohn's disease presenting for possible small-bowel obstruction. He 3 hours of abdominal pain had had a bowel movement. However I got the ED he had a large bowel movement now feels better. He is requesting discharge. He declined any workup. Vital Signs Vital Signs: Vital Signs Temperature 98.0 F 03/15/24 22:26 Pulse Rate 81 03/15/24 22:26 Respiratory Rate 15 03/15/24 22:26 Blood Pressure 188/102 H 03/15/24 22:26 Pulse Oximetry 100 03/15/24 22:26 Temperature 98.0 F 03/15/24 22:26
[2024-03-16] VITALS: BP 136/82; PULSE 89; RESP 15; O2SAT 100
== END 2024-03-16 | disposition home or self-care (01) ==
PROVIDERS: Emergency Provider Emergency Medicine; PCP Family Medicine
DX: K51.90 Ulcerative colitis, unspecified, without complications (principal); K21.9 Gastro-esophageal reflux disease without esophagitis; L40.9 Psoriasis, unspecified; Z87.891 Personal history of nicotine dependence; Z90.49 Acquired absence of other specified parts of digestive tract; Z79.69 Long term (current) use of other immunomodulators and immunosuppressants; Z79.899 Other long term (current) drug therapy
CPT/HCPCS: 36415; 80053; 81003; 83690; 85025; 99283